=== PATIENT | female | born 1955 | race Caucasian/White ===

== ENCOUNTER → 2019-07-25 08:07 | Outpatient (BNVA) | payer MEDICARE, OTHER, SELFPAY | PROVIDERS: Family Provider Nurse Practitioner Family; PCP Nurse Practitioner Family; Visit Provider Internal Medicine Endocrinology, Diabetes & Metabolism | DX: E21.0 Primary hyperparathyroidism (principal); R79.89 Other specified abnormal findings of blood chemistry | CPT/HCPCS: 82306; 82310; 83970 ==

== ENCOUNTER → 2019-09-24 09:07 | Outpatient (BNVA) | payer MEDICARE, OTHER, SELFPAY | PROVIDERS: Family Provider Nurse Practitioner Family; PCP Nurse Practitioner Family; Visit Provider Nurse Practitioner Family | DX: E11.9 Type 2 diabetes mellitus without complications (principal) | CPT/HCPCS: 80053; 80061; 83036; 85025 ==

== ENCOUNTER → 2019-12-04 11:03 | Outpatient (BNVA) | payer MEDICARE, OTHER, SELFPAY | PROVIDERS: Family Provider Nurse Practitioner Family; PCP Nurse Practitioner Family; Visit Provider Nurse Practitioner | DX: I10 Essential (primary) hypertension (principal) | CPT/HCPCS: 80053; 81000; 84443; 85025 ==

== ENCOUNTER 2019-12-06 01:09 | Observation (INO) | payer MEDICARE, OTHER, SELFPAY ==
[2019-12-06] VITALS (11 sets, daily range): BP systolic 92–206; BP diastolic 47–111; PULSE 56–100; RESP 14–21; TEMP 36.4–36.6; O2SAT 88–98; BMI 24.9
--- NOTE | 2019-12-06 01:25 | ECG_ITS ---
Measurements Intervals [place] Rate: 85 P: 77 NC: 169 QRS: -58 QRSD: 115 T: 93 QT: 371 QTc: 444 SINUS RHYTHM LOW QRS VOLTAGE IN PRECORDIAL LEADS INCOMPLETE RIGHT BUNDLE BRANCH BLOCK LEFT ANTERIOR FASCICULAR BLOCK POSSIBLE ANTERIOR MYOCARDIAL INFARCTION , OF INDETERMINATE AGE No previous ECG available for comparison Electronically Signed On 12-06-2019 18:04:37 CDT by Jessica Brumfield M.D. [id number]
--- NOTE | 2019-12-06 01:25 | XR_ITS ---
WS: [id number] CHEST XRAY TECHNIQUE: Portable chest. CLINICAL INFORMATION: cp COMPARISON: None. FINDINGS: Heart: Normal cardiac silhouette. Lungs: Lungs are clear. No consolidation or pleural effusion. Chronic elevation right hemidiaphragm. Bones: Normal visualized bony structures. XR/XR chest 1V portable [id number] IMPRESSION: No acute chest findings
--- NOTE | 2019-12-06 01:31 | ED_ITS ---
HPI - Chest Pain General: Chief Complaint: Chest Pain Stated Complaint: high bp Time Seen by Provider: 12/06/19 01:25 History of Present Illness: HPI narrative: 64-year-old female with a history of hypertension states her blood pressures been running high over the last 2 days. She saw her PCP yesterday who upped her lisinopril. She states tonight she started having chest pain that is a pressure type pain in her chest that radiated to her back. She denies any tearing pain and states it is all been pressure. She denies any pain currently. She is hypertensive. She denies any vomiting has had nausea. She has a history of high blood pressure along with high cholesterol and diabetes. MD complaint: chest pain Onset (ago): hour(s) Timing of current episode: episodic Onset: during rest Pain location: left chest Pain radiation: left arm and back Severity: moderate Quality: tightness Relieving factors: nothing Exacerbating factors: nothing Associated symptoms: Deny abdominal pain, dyspnea, fever(s), nausea or vomiting Review of Systems Const: Denies: fever(s), chills, body aches or change in appetite Eyes: Denies: blurry vision or eye discomfort ENMT: Denies: throat pain or dental pain Card: Reports: chest pain Resp: Denies: dyspnea GI: Denies: abdominal pain, nausea, vomiting or diarrhea : Denies: dysuria Musc: Denies: neck pain or back pain Skin/Breast: Denies: rash Neuro: Denies: headache(s) Psych: Denies: depression Manuel/Lymph: Denies: easy bruising All/Imm: Denies: urticaria PFSH ED PFSH: Medical History Dyslipidemia Environmental and seasonal allergies Essential (primary) hypertension Generalized osteoarthrosis, involving multiple sites Interstitial lung disease Obstructive sleep apnea Pulmonary hypertension, unspecified Type 2 diabetes mellitus without complications Surgical History History of parathyroidectomy 06/18/19 Hx of hysterectomy 1995 - TOTAL Family History Brother Cancer of brain Other Bleeding ulcer Cancer Social History Smoking and tobacco status: never smoked Second hand smoke exposure: No Smoking risk assessment/counseling performed?: No Alcohol intake: never Desire information about alcohol rehabilitation?: No Counseling given: No Desire information about substance/drug rehabilitation?: No Counseling given: No Adopted: No Caregiver/support person: No Lives independently: Yes Household members: spouse Housing: House Marital status: Number of children: 2 Number of grandchildren: 1 Highest education level completed: Bachelor's Degree service: No Current occupational status: employed Current occupation: [employer] Current occupational exposures/hazards: No History of recent travel: No Current gender identity: Female Physical Exam Const: COMMON NORMALS: no acute distress, patient oriented x3 and healthy appearing HENMT: COMMON NORMALS: normocephalic and atraumatic HEAD & SCALP: normocephalic and atraumatic Eye: COMMON NORMALS: Equal, round and reactive pupils present and EOMs intact bilaterally PUPIL: Yes Equal, round and reactive pupils present Neck/C-Spine: COMMON NORMALS: full ROM and supple Chest: COMMONS NORMALS: normal inspection of the chest and normal palpation of entire chest wall Resp: COMMON NORMALS: normal respiratory effort, No retractions, No use of accessory muscles and clear to auscultation bilaterally AUSCULTATION: clear to auscultation bilaterally Cardio: COMMON NORMALS: regular rate, regular rhythm and No murmurs present (Cardio) RATE: regular rate RHYTHM: regular rhythm GI: COMMON NORMALS: Normal to inspection, nondistended, normoactive bowel sounds present, Soft to palpation, non-tender and no masses PALPATION: Yes Soft to palpation Extremity: COMMON NORMALS: normal to inspection and full ROM Neuro: COMMON NORMALS: patient oriented x3, moves all extremities and no focal motor deficits Psych: COMMON NORMALS: mental status grossly normal, Normal thought process present and cooperative THOUGHT PROCESS: Normal thought process present Skin: COMMON NORMALS: no rashes or lesions noted and no wounds GENERAL SKIN EXAM: no rashes or lesions noted Course 2 Vital Signs: Vital signs: Vital Signs Temperature 97.9 F 12/06/19 01:20 Pulse Rate 56 L 12/06/19 02:35 Respiratory Rate 16 12/06/19 02:35 Blood Pressure 128/88 12/06/19 02:35 Pulse Oximetry 91 12/06/19 02:35 MDM - Chest Pain MDM Narrative: Medical decision making narrative: Patient presents with chest pain is resolved with nitro. Patient is also hypertensive that resolved with nitro as well. She has multiple risk factors I spoke to catheter and will admit duration. Patient has been stable while here. She has no signs of aortic dissection or pulmonary embolism. Lab Data: Labs: Lab Results 12/06/19 12/06/19 12/06/19 Range/Units 01:30 01:30 01:30 WBC 12.9 H (4.0-10.0) 10^3/ uL RBC 4.98 (4.1-5.3) 10^6/u L Hgb 14.2 (11.5-15.3) g/dL Hct 44.7 (37.0-47.0) % MCV 89.8 (81-99) fL MCH 28.5 (28.0-34.0) pg MCHC 31.8 (30.0-36.0) g/dL RDW 13.4 (12.1-15.1) % Plt Count 237 (130-400) 10^3/c mm MPV 10.8 H (7.4-10.4) fL Neut % (Auto) 70.3 % Lymph % (Auto) 20.5 % [place] % (Auto) 5.9 % Eos % (Auto) 2.5 % Baso % (Auto) 0.5 % Neut # (Auto) 9.1 H (1.8-7.7) 10^3/u L Lymph # (Auto) 2.6 (0.8-4.8) 10^3/u L [place] # (Auto) 0.8 (0.2-0.9) 10^3/u L Eos # (Auto) 0.3 (0.0-0.8) 10^3/u L Baso # (Auto) 0.1 (0.0-0.1) 10^3/u L Nucleated RBC % (a uto) 0 % Nucleated RBCs # 0.0 /100WBC Sodium 143 (136-145) mmol/L Potassium 3.5 (3.5-5.1) mmol/L Chloride 99 (98-107) mmol/L Carbon Dioxide 27 (22-29) mmol/L Anion Gap 20.5 H (5-19) BUN 18 (8-23) mg/dL Creatinine 0.8 (0.5-0.9) mg/dL GFR Calculation 71.8 L (90-130) mL/min Glucose 171 H (65-115) mg/dL Calculated Osmolal ity 297 H (285-295) mOsm/k g Calcium 9.6 (8.5-10.5) mg/dL Total Bilirubin 0.3 (0.15-1.2) mg/dL AST 18 (0-32) U/L ALT 24 (0-33) U/L Alkaline Phosphata se 110 H (35-105) IU/L Troponin T Baselin e 16 H (0-10) ng/mL Total Protein 7.2 (6.6-8.7) g/dL Albumin 4.8 (3.5-5.2) g/dL Globulin 2.4 (1.3-4.6) g/dL Imaging Data^: CXR: Attestation: I personally reviewed and interpreted this imaging study as follows: My impression: no acute abnormality EKG Data^: EKG 1: Attestation: I personally reviewed and interpreted this EKG as follows: EKG interpretation date: 12/06/19 EKG interpretation time: 01:41 Interpretation: nsr hr 85 rbbb fascicular block no st elevation qrs 115 qtc 414 Discharge Plan Discharge Patient Disposition: Admitted As Inpatient Clinical Impression: Essential (primary) hypertension Chest pain Qualifiers: Chest pain type: unspecified Qualified Code(s): R07.9 - Chest pain, unspecified Condition: Stable Referrals: Jossie Sanchez FNP-C [Primary Care Provider] - Coding Level of Care Code ED Property Economist for Chg Fwd Exam Comprehensive
[2019-12-06 01:38] LABS: Basophils # 0.1 10^3/uL (0.0-0.1); Basophils % 0.5 %; Eosinophils # 0.3 10^3/uL (0.0-0.8); Eosinophils % 2.5 %; Hematocrit 44.7 % (37.0-47.0); Hemoglobin 14.2 g/dL (11.5-15.3); Lymphocytes # 2.6 10^3/uL (0.8-4.8); Lymphocytes % 20.5 %; Mean Corpuscular HGB Conc 31.8 g/dL (30.0-36.0); Mean Corpuscular Hemoglobin 28.5 pg (28.0-34.0); Mean Corpuscular Volume 89.8 fL (81-99); Mean Platelet Volume 10.8 fL (7.4-10.4); Monocytes # 0.8 10^3/uL (0.2-0.9); Monocytes % 5.9 %; Neutrophils # 9.1 10^3/uL (1.8-7.7); Neutrophils % 70.3 %; Nucleated Red Blood Cells % 0 %; Platelet Count 237 10^3/cmm (130-400); Red Blood Count 4.98 10^6/uL (4.1-5.3); Red Cell Distribution Width 13.4 % (12.1-15.1); White Blood Count 12.9 10^3/uL (4.0-10.0)
[2019-12-06] MEDS: nitroglycerin 0.4 mg sublingual Tablet SUBLINGUAL (01:40)
[2019-12-06 02:06] LABS: Alanine Aminotransferase 24 U/L (0-33); Albumin Level 4.8 g/dL (3.5-5.2); Alkaline Phosphatase 110 IU/L (35-105); Anion Gap 20.5 (5-19); Aspartate Amino Transferase 18 U/L (0-32); Blood Urea Nitrogen 18 mg/dL (8-23); Calcium 9.6 mg/dL (8.5-10.5); Carbon Dioxide 27 mmol/L (22-29); Chloride 99 mmol/L (98-107); Globulin 2.4 g/dL (1.3-4.6); Glomerular Filtration Rate 71.8 mL/min (90-130); Glucose 171 mg/dL (65-115); Osmolality Calculated 297 mOsm/kg (285-295); Potassium 3.5 mmol/L (3.5-5.1); Sodium 143 mmol/L (136-145); Total Bilirubin 0.3 mg/dL (0.15-1.2); Total Protein 7.2 g/dL (6.6-8.7)
[2019-12-06 02:07] LABS: Troponin(5th) Baseline 16 ng/mL (0-10)
[2019-12-06] MEDS: sodium chloride 0.9% 1,000 ML 999 ML IV (02:49)
--- NOTE | 2019-12-06 03:05 | USCV_ITS ---
Elizabeth Garcia Age: 64 Gender: F : 1955 Exam Date: 12/06/2019 07:21 Ordering Phys: Claudia Cam MD Technologist: Omar Mcneal [place]am [place] [facility] [place]ication: CHEST PAIN BP: 130 / 74 HR: 74 Rhythm: Sinus Technical Quality: Adequate MEASUREMENTS (Male / Female) Normal Values 2D ECHO LV Diastolic Diameter PLAX 4.0 cm 4.2 - 5.9 / 3.9 - 5.3 cm LV Systolic Diameter PLAX 3.0 cm IVS Diastolic Thickness 0.9 cm 0.6 - 1.0 / 0.6 - 0.9 cm IVS Systolic Thickness 1.3 cm LVPW Diastolic Thickness 1.0 cm 0.6 - 1.0 / 0.6 - 0.9 cm LVPW Systolic Thickness 1.3 cm LVOT Diameter 2.0 cm LV Ejection Fraction 2D Teich 50.6 % LV Ejection Fraction MOD 2C 63.8 % LV Ejection Fraction 2C AL 64.3 % LA Diameter 4.9 cm LA Width 3.7 cm LA Height 4.0 cm RA Width 3.6 cm RA Height 4.3 cm M-MODE LV Diastolic Diameter MM 5.3 cm 4.2 - 5.9 / 3.9 - 5.3 cm LV Systolic Diameter MM 3.0 cm LV Ejection Fraction MM Teich 72.7 % IVS Diastolic Thickness MM 1.5 cm 0.6 - 1.0 / 0.6 - 0.9 cm IVS Systolic Thickness MM 1.8 cm LVPW Diastolic Thickness MM 1.1 cm 0.6 - 1.0 / 0.6 - 0.9 cm LVPW Systolic Thickness MM 1.8 cm RV Diastolic Diameter MM 1.9 cm Aortic Annulus Diameter 3.4 cm LA Ao Ratio MM 1.4 MV E Point Septal Separation 0.9 cm DOPPLER AV Peak Velocity 137.0 cm/s LVOT Peak Velocity 92.0 cm/s AV Area Cont Eq vti 2.3 cm squared AV Area Cont Eq pk 2.2 cm squared MV Area PHT 5.0 cm squared Mitral E to A Ratio 0.8 MV E' Velocity 77.0 cm/s Mitral E to LV E' Septal Ratio 11.9 TR Peak Velocity 223.0 cm/s TR Peak Gradient 19.9 mmHg TV Peak E Velocity 109.0 cm/s Right Atrial Pressure 3.0 mmHg Pulmonary Artery Systolic Pressu 22.9 mmHg PV Peak Velocity 99.0 cm/s FINDINGS Left Ventricle Normal left ventricular cavity size. Normal left ventricular systolic function. No regional wall motion abnormalities. Left ventricular ejection fraction is estimated at 60 %. No regional wall motion abnormalities. Grade I/IV diastolic dysfunction (abnormal relaxation filling pattern), normal to mildly elevated filling pressures. Right Ventricle The right ventricle is normal in size and function. Right Atrium The right atrium is normal in size. Left Atrium The left atrium is normal in size. Mitral Valve Structurally normal mitral valve without significant stenosis or prolapse. Moderate mitral annular calcification. There is no mitral regurgitation. Aortic Valve Moderate aortic valve calcification. No aortic valve stenosis. No aortic valve regurgitation. Tricuspid Valve Structurally normal tricuspid valve without significant stenosis or regurgitation. Pulmonary artery systolic pressure is normal. Pulmonic Valve Structurally normal pulmonic valve without significant stenosis. There is no pulmonic regurgitation. Pericardium Normal pericardium without effusion. Aorta Normal ascending aorta dimension. CONCLUSIONS 1-Normal left ventricular cavity size. Normal left ventricular systolic function. No regional wall motion abnormalities. Left ventricular ejection fraction is estimated at 60 %. No regional wall motion abnormalities. Grade I/IV diastolic dysfunction (abnormal relaxation filling pattern), normal to mildly elevated filling pressures. 2-Structurally normal mitral valve without significant stenosis or prolapse. Moderate mitral annular calcification. There is no mitral regurgitation. 3-Moderate aortic valve calcification. No aortic valve stenosis. No aortic valve regurgitation. 4-There is no pericardial effusion. 5-Pulmonary artery systolic pressure is within normal limits. 6-No significant change since the prior echocardiogram study of 05/24/2018. Donte Aguirre MD (Electronically Signed) Final Date: 06 Dec 2019 16:37 S
--- NOTE | 2019-12-06 03:25 | ECG_ITS ---
Measurements Intervals [place] Rate: 0 P: [place]: 0 QRS: QRSD: 0 T: QT: 0 QTc: 0 SINUS BRADYCARDIA ATYPICAL ECG WARNING: DATA QUALITY MAY AFFECT INTERPRETATION INTERPRETATION BASED ON A DEFAULT AGE OF 40 YEARS No previous ECG available for comparison Electronically Signed On 12-06-2019 21:51:47 CDT by Jessica Brumfield M.D. [id number]
[2019-12-06 03:29] LABS: NT Pro B Type Natriuretic Pept 75 pg/mL (0-125)
[2019-12-06 03:31] LABS: Troponin 5 2HR 15.35 ng/mL (0-10)
[2019-12-06 03:36] LABS: D Dimer 2.93 ug/mIFEU (0-0.59)
[2019-12-06] MEDS: enoxaparin 40 mg/0.4 mL Syringe SUBCUT (03:47)
[2019-12-06 03:48] LABS: Troponin 5 2HR Delta -0.65 ABS# (0-10)
--- NOTE | 2019-12-06 05:49 | P.HP_ITS ---
Providers/Chief Complaint Admitting Physician: Claudia Cam MD Primary Care Provider: SHANDA Bonner Chief Complaint: high bp History of Present Illness Elizabeth Garcia is a 64 year old female with a past medical history of hypertension, diabetes mellitus, hyperlipidemia, sleep apnea and osteoarthritis who presents to the ER with complaints of chest discomfort. Patient states that she has been having chest discomfort, which first started around Monday night at which time her blood pressure was grossly elevated at home. She took her blood pressure medications and then subsequently followed up with her primary care provider on Monday at which time her dose of lisinopril was increased from 20 mg once a day to 40 mg once a day. In addition her Lasix was also increased to 20 mg daily as against being PRN. Increasing the Lasix dose. Improve some of her lower extremity swelling, however this is been more chronic for her. Last night at around midnight, patient started to experience chest discomfort, felt as a squeezing sensation in the center of her chest and radiating into the back. Was no radiation into the arms or neck. She did not feel short of breath during this episode. She checked her blood pressure and this was greater than 200 systolic and she presented to the ER. Once here her blood pressure upon arrival was 200 systolic. She received nitroglycerin which reduced her blood pressure and in fact dropped to systolic of 92. She also became transiently bradycardic with heart rate of 50. She said that during this episode she felt diaphoretic and mildly dizzy, however this recovered after she got some IV hydration and blood pressure returned to normal. At this present time of examination her blood pressure is 170/110. She says her pain is now much improved. She does not report any dyspnea on exertion the past few days. She has not had a cardiac stress test in the recent past. 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 She has no history of NH in the past. Diagnostics in the ER showed an EKG possible LVH but no acute ST-T wave changes. Her first troponin is at 16, with subsequent 1 at 15 with a negative delta of 0.6. She is saturating 94% on room air, though earlier in the ER was noted to have O2 sat of 88%. Last echocardiogram dates back to 05/2018 at which time LVEF was 65% without any regional wall motion abnormalities and a normal diastolic function. Review of Systems General: Reports: 10 or more systems reviewed and unremarkable except in HPI and below Const: Denies: fever(s), chills or body aches Eyes: Denies: change in vision, blurry vision or photophobia ENMT: Denies: throat pain, enlarged tonsils, odynophagia, hoarseness or nasal congestion Card: Denies: chest pain, palpitations, irregular heart rhythm, edema, swelling of feet/ankles, lightheadedness, pre-syncope, dyspnea on exertion or orthopnea Resp: Denies: dyspnea, productive cough, non-productive cough, wheezing, stridor, pain on inspiration, change in phlegm color, hemoptysis or chest congestion GI: Denies: abdominal pain, nausea, vomiting, hematemesis, coffee ground emesis, dysphagia, heartburn, diarrhea, constipation, GI cramping, change in stool character, hematochezia or melena : Denies: flank pain, difficulty voiding, dysuria, urinary frequency, urinary urgency, urinary hesitancy or hematuria Musc: Denies: neck pain, back pain, extremity pain, joint swelling, joint warmth or deformity Neuro: Denies: headache(s), numbness in extremities, weakness in extremities, sensory changes, difficulty walking, frequent falls, dizziness, vertigo, behavioral changes, Slurred speech present or seizure-like activity Psych: Denies: anxiety, depression, suicidal ideation or homicidal ideation Endo: Denies: polyuria, polydipsia, tired all the time, cold intolerance or hot flashes Manuel/Lymph: Denies: easy bruising or easy bleeding Medications/Allergies Home Medications Medication Instructions Recorded Confirmed Last Taken Type albuterol sulfate 90 mcg/actuation 2 puff INHALATION Q6H PRN 09/26/19 12/06/19 12/05/19 History aerosol inhaler aspirin 81 mg tablet,delayed 81 mg PO DAILY 09/26/19 12/06/19 12/05/19 History release cetirizine 10 mg tablet 5 mg PO DAILY 30 Days #30 tab 09/26/19 12/06/19 12/05/19 Rx fish oil 1 tab PO DAILY 09/26/19 12/06/19 12/05/19 History furosemide 20 mg tablet 20 mg PO DAILY 30 Days #30 tab 09/26/19 12/06/19 12/05/19 Rx meloxicam 15 mg tablet 15 mg PO DAILY 30 Days #30 tab 09/26/19 12/06/19 12/05/19 Rx metformin 500 mg tablet 500 mg PO BID 30 Days #60 tab 09/26/19 12/06/19 12/05/19 Rx montelukast 10 mg tablet 10 mg PO DAILY 09/26/19 12/06/19 12/05/19 History rosuvastatin 5 mg tablet 5 mg PO .every other day 30 Days 09/26/19 12/06/19 12/05/19 Rx #30 tab vitamin c 1,000 tab PO DAILY 09/26/19 12/06/19 12/05/19 History vitamin d 1 tab PO DAILY 09/26/19 12/06/19 12/05/19 History fluconazole 150 mg tablet 150 mg PO DAILY #1 tab 11/07/19 12/06/19 12/05/19 Rx nystatin 100,000 unit/gram topical 1 applic TOPICAL BID #60 gm 11/07/19 12/06/19 12/05/19 Rx powder lisinopril 40 mg tablet 40 mg PO DAILY 30 Days #30 tab 12/04/19 12/06/19 12/05/19 Rx Allergies Allergy/AdvReac Type Severity Reaction Status Date / Time No Known Allergies Allergy Verified 09/26/19 08:33 PFSH Acute PFSH: Medical History Dyslipidemia Environmental and seasonal allergies Essential (primary) hypertension Generalized osteoarthrosis, involving multiple sites Interstitial lung disease Obstructive sleep apnea Pulmonary hypertension, unspecified Type 2 diabetes mellitus without complications Surgical History History of parathyroidectomy 06/18/19 Hx of hysterectomy 1996 - TOTAL Family History Brother Cancer of brain Other Bleeding ulcer Cancer Social History Smoking and tobacco status: never smoked Second hand smoke exposure: No Smoking risk assessment/counseling performed?: No Alcohol intake: never Desire information about alcohol rehabilitation?: No Counseling given: No Desire information about substance/drug rehabilitation?: No Counseling given: No Adopted: No Caregiver/support person: No Lives independently: Yes Household members: spouse Housing: House Marital status: Number of children: 2 Number of grandchildren: 1 Highest education level completed: Bachelor's Degree service: No Current occupational status: employed Current occupation: [employer] Current occupational exposures/hazards: No History of recent travel: No Current gender identity: Female Vitals/I&O/Wt Last Vital Signs Temp 97.6 F 12/06/19 03:43 Pulse 65 12/06/19 05:05 Resp 18 12/06/19 05:05 BP 170/67 12/06/19 03:43 Pulse Ox 94 12/06/19 05:05 Weight last 48 hrs Weight 123.468 kg Weight 72.121 kg Physical Exam Narrative: EXAM NARRATIVE: GEN: Awake, alert and oriented, no acute distress CVS: S1S2 N RS: CTA B/L Abd: Soft, nt/nd , 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 - Chest pain: Currently EKG does not show any acute ST-T changes and serial troponins do not have unremarkable delta, making the possibility of ACS less likely. However this could represent unstable angina and would recommend a stress test for further evaluation. However, on checking with the lab, it is unable to be performed today Check echocardiogram Continue aspirin 81 mg daily. She has already received 325 mg aspirin in the ER. -Hypertensive urgency likely contributing to patient's symptoms. His initial blood pressure was greater than 200 systolic, improved after being given nitrates. We will continue her home dose of lisinopril 40 mg for now and add Imdur to her regimen. Plan would avoid the use of beta-blockers given that patient had bradycardia down to 40s to 50s in the ER. -Transient episode of hypoxia with O2 sat down to 88%, which while it may be related to her underlying sleep apnea, given that she is complaining of chest pain hypoxia and with an elevated d-dimer, will rule out PE by obtaining CTA of the chest. -Chronic lower extremity swelling for which patient is on Lasix. BNP is not elevated today. Unclear if CHF may be contributing this. Echocardiogram with help evaluate further. -Diabetes mellitus: Continue metformin for now. DVT prophylaxis Lovenox Full code Attestations Medical Necessity Statement*: Anticipate less than 1 midnight admission for evaluation of chest pain and hypertensive urgency. Coding Level of Care Code Acute Development System Efficiency Manager for [facility] Diagnoses Chest pain R07.9 Chest pain type: unspecified Type 2 diabetes mellitus without complications E11.9 Diabetes mellitus residential insulin use: without residential use Hypertensive urgency I16.0
--- NOTE | 2019-12-06 06:06 | CTR_ITS ---
PROCEDURE INFORMATION: Exam: CT Angiography Chest With Contrast Exam date and time: 12/06/2019 6:08 AM Age: 64 years old Clinical indication: Pain and abnormal findings; Abnormal diagnostic tests; Elevated d-dimer; Other: Hypoxia; Chest pain; Additional info: Chest pain, hypoxia, elevated d dimer TECHNIQUE: Imaging protocol: Computed tomographic angiography of the chest with intravenous contrast. 3D rendering: MIP and/or 3D reconstructed images were created by the technologist. Radiation optimization: All CT scans at this facility use at least one of these dose optimization techniques: automated exposure control; mA and/or kV adjustment per patient size (includes targeted exams where dose is matched to clinical indication); or iterative reconstruction. Contrast material: OMNI 350; Contrast volume: 95 ml; Contrast route: 20G; COMPARISON: CT chest [facility] [id number] 05/11/2018 9:59 AM RADIATION DOSE METRICS: Total DLP: 624.85 mGy-cm FINDINGS: Pulmonary arteries: No pulmonary emboli identified. Aorta: Mild atherosclerotic calcification of the thoracic aorta. There is no evidence of thoracic aortic aneurysm or dissection within the limits imposed by heart motion artifact. Lungs: Mild emphysematous changes of both lungs. Mild patchy atelectasis scattered throughout both lungs. Pleural space: No pneumothorax or pleural effusion. Heart: Heart size within normal limits. Lymph nodes: No enlarged or abnormal appearing mediastinal/hilar lymph nodes identified. Bones/joints: Probable hemangioma in the left side of the T5 vertebral body. Moderate degenerative disc disease at L1-L2. Soft tissues: Unremarkable. Other findings: Images of the upper abdomen were reviewed and are unremarkable. CT/CT angio chest PE [facility] [id number] IMPRESSION: 1. No pulmonary emboli identified. Radiation Dose CTDIVOL = (mGy): DLP = 624.85 (mGy-cm)
[2019-12-06] MEDS: iohexol 350 mg/mL 100 mL Btl IV (06:47)
--- NOTE | 2019-12-06 07:25 | ECG_ITS ---
Measurements Intervals [place] Rate: 65 P: 60 VT: 192 QRS: -38 QRSD: 121 T: 106 QT: 362 QTc: 378 SINUS RHYTHM LEFT AXIS DEVIATION [QRS AXIS < -30] RIGHT BUNDLE BRANCH BLOCK LEFT VENTRICULAR HYPERTROPHY AND ST-T CHANGE POSSIBLE ANTERIOR MYOCARDIAL INFARCTION , OF INDETERMINATE AGE [30 ms Q WAVE IN V3/V4, OR R < 0.2 mV IN V4] No previous ECG available for comparison Electronically Signed On 12-06-2019 18:34:54 CDT by Jessica Brumfield M.D. [id number]
[2019-12-06] MEDS: lisinopril 20 mg Tablet 40 MG PO (08:21)
[2019-12-06] MEDS: aspirin 81 mg EC Tablet PO (08:21)
[2019-12-06] MEDS: isosorbide mononitrate ER 30 mg Tablet PO (08:22)
[2019-12-06] MEDS: atorvastatin 40 mg Tablet 20 MG PO (08:24)
[2019-12-06] MEDS: FUROsemide 20 mg Tablet PO (08:24)
--- NOTE | 2019-12-06 10:00 | PC.CHAP ---
Pastoral Care Encounter/Spiritual Assessment Type of Contact [] Declined armature winder repair visit [] Patient/Family/Request visit [] Outpatient visit [] Follow-up visit [] Physician referral [] Code/Alert [x] Routine visit [] Staff referral [] Actively dying [] Patient sleeping [] Family support [] [] Out of room [] Palliative care [] [] Receiving care in room [] Pre-surgical visit [] Trauma [] Long length of stay [] ICU visit [] Other: Relational/Emotional Strength [] Patient feels connected with others/family/visitors/staff [] Distress [] Loneliness/isolation [] Abandonment Spirituality of Patient [] Person of Shirley [] Attends Caodaism of their [place] [x] Believes in Prayer [] Reads Bible or Congregation materials [] There are Spiritual issues to be addressed Prevocational/Rehabilitation Counselor Interventions [x] Prayer [] Active listening [] Non-anxious presence [] Spiritual/emotional support [] Crisis/trauma care [] Spiritual counseling [] Bereavement support [] Provided bereavement packet [] Provided Bible/devotional materials [] Provided toy/stuffed animal, coloring book to patient or family member [] Provided Communion [] Anointing/[place] [] Salvation [x] Completed spiritual assessment [] Other: Impact on Illness or Injury [] Angry [] Fearful [] Anxious [] Often cries [] Exhaustion [] Unable to work [] Unable to attend quaker [] Unable to walk/stand [] Unable to read [] Unable to drive [] Unable to eat/drink [] Unable to sleep [] Unable to be with family [] Patient intubated [] Other: Summary Patient feeling more stable. Patient trying to get some rest. Time spent with patient 15 min
--- NOTE | 2019-12-06 10:42 | PM.DCS ---
Discharge Providers Date of Admission: 12/06/19 02:37 Date of Discharge: December 06, 2019 Attending Provider at Admission: Claudia Cam MD Attending Provider at Discharge: Atif Jacobsen MD Primary Care Provider: SHANDA Bonner Diagnoses at Discharge Discharge Diagnosis (1) Chest pain: Status: Acute Qualifiers: Chest pain type: unspecified Qualified Code(s): R07.9 - Chest pain, unspecified (2) Type 2 diabetes mellitus without complications: Status: Chronic Qualifiers: Diabetes mellitus alf insulin use: without alf use Qualified Code(s): E11.9 - Type 2 diabetes mellitus without complications (3) Hypertensive urgency: Status: Acute (4) Essential (primary) hypertension: Status: Chronic (5) Obstructive sleep apnea: Status: Chronic (6) Dyslipidemia: Status: Chronic (7) Pulmonary hypertension, unspecified: Status: Chronic Reason for Visit Reason for Visit: Reason For Visit: high bp Hospital Course Discharge Summary: Elizabeth Garcia is a 64 year old female with a past medical history of hypertension, diabetes mellitus, hyperlipidemia, sleep apnea and osteoarthritis who presents to the ER with complaints of chest discomfort. Patient states that she has been having chest discomfort, which first started around Monday night at which time her blood pressure was grossly elevated at home. She took her blood pressure medications and then subsequently followed up with her primary care provider on Monday at which time her dose of lisinopril was increased from 20 mg once a day to 40 mg once a day. In addition her Lasix was also increased to 20 mg daily as against being PRN. Increasing the Lasix dose. Improve some of her lower extremity swelling, however this is been more chronic for her. On night of December 04 at around midnight, patient started to experience chest discomfort, felt as a squeezing sensation in the center of her chest and radiating into the back. Was no radiation into the arms or neck. She did not feel short of breath during this episode. She checked her blood pressure and this was greater than 200 systolic and she presented to the ER. Once here her blood pressure upon arrival was 200 systolic. She received nitroglycerin which reduced her blood pressure and in fact dropped to systolic of 92. She also became transiently bradycardic with heart rate of 50. She said that during this episode she felt diaphoretic and mildly dizzy, however this recovered after she got some IV hydration and blood pressure returned to normal. At this present time of examination her blood pressure is 170/110. She says her pain is now much improved. She does not report any dyspnea on exertion the past few days. She has not had a cardiac stress test in the recent past. She last had a cardiac catheterization 5 to 6 years ago with her claim investigator in [place] and was reportedly normal at the time. She has no history of MT in the past. Diagnostics in the ER showed an EKG possible LVH but no acute ST-T wave changes. Her first troponin is at 16, with subsequent 1 at 15 with a negative delta of 0.6. She is saturating 94% on room air, though earlier in the ER was noted to have O2 sat of 88%. Last echocardiogram dates back to 05/2018 at which time LVEF was 65% without any regional wall motion abnormalities and a normal diastolic function. Patient was admitted to the floor for monitoring of blood pressure. Imdur was added to her regimen after which her blood pressures remained a lot better. Patient was reporting mild headache because of Imdur. Her blood work showed A1c of 7.1, deranged lipid panel. Telemetry monitoring overnight had shown normal sinus rhythm with occasional rhythm of possible multifocal atrial tachycardia versus a flutter. For hypertension as patient was experiencing headache with Imdur the dose of Imdur was decreased to 15 mg daily. Patient did not have much lower limb swelling so her dose of Lasix was changed to chlorthalidone for better blood pressure response. So her antihypertensive regimen would be lisinopril 40 mg daily, chlorthalidone 12.5 mg daily, Imdur 15 mg daily. Patient has been asked to maintain a blood pressure diary for next 1 week. She supposed to take blood pressure twice daily on second time after resting for around 5 minutes. For chest pressure, her troponins were cycled and remained negative, EKG remained stable. As patient was admitted late in night stress test could not be ordered for next day due to limited supply of Lexiscan. As patient did not have any further chest pain she was advised to follow-up as an outpatient for a Lexiscan. For possible arrhythmia, it is possible patient is having multifocal atrial tachycardia because of history of obstructive sleep apnea. We do not have any EKG or patient does not have any history of the same. Patient would like to hold off on starting on anticoagulation for now. Patient has been arranged for an event monitor to be fitted for further evaluation. For HCP, patient's ASCVD score was 25% so the dose of rosuvastatin was increased to be high intensity, high dose of metformin was also increased to thousand milligrams twice daily as her fasting blood sugars are more than 140. For obstructive sleep apnea, patient uses CPAP at home. Patient has been encouraged to continue CPAP as fitted. She said her last setting change was around a year ago. Patient at rest when relaxing with her head forward the saturations will fall down to 88% but that improves all of a sudden on its own to 95% on sitting up straight. Patient has been counseled for better sitting posture. Advair has been added to her medication list for history of emphysema. During hospitalization patient was found to have an elevated d-dimer for which CTA was done and was negative for any pulmonary embolism but showed mild emphysema. Echocardiogram was done but result is not available at present. Patient was discharged in hemodynamic stable condition with better blood pressures and no chest pain. Physical Exam Narrative: EXAM NARRATIVE: GEN: Awake, alert and oriented, no acute distress CVS: S1S2 N RS: CTA B/L Abd: Soft, nt/nd , bs+ CHEMICAL PRODUCTION ENGINEER: no focal neuro deficits EXT: B/L LE with minimal pitting edema Discharge Data Data Completed and Pending: Completed Studies During Hospitalization Category Date Time Status CT angio chest PE protcl [id number] Rout ine Cat Scan 12/06/19 06:06 Completed XR chest 1V mike ble [id number] Stat Exams 12/06/19 01:25 Completed Pending at discharge Category Date Time Status CV echo complete* [id number] Urgent Ultrasound 12/06/19 03:05 Taken Labs from last 24 hours 12/06/19 12/06/19 12/06/19 07:10 03:08 01:30 WBC RBC Hgb Hct MCV MCH MCHC RDW Plt Count MPV Neut % (Auto) Lymph % (Auto) Logan % (Auto) Eos % (Auto) Baso % (Auto) Neut # (Auto) Lymph # (Auto) Logan # (Auto) Eos # (Auto) Baso # (Auto) Nucleated RBC % (a uto) Nucleated RBCs # D-Dimer Sodium Potassium Chloride Carbon Dioxide Anion Gap BUN Creatinine GFR Calculation Glucose Calculated Osmolal ity Calcium Total Bilirubin AST ALT Alkaline Phosphata se Troponin I 6 Hour 13.40 H Troponin I Hi Sens Del -2.60 L Troponin T Baselin e Troponin T 120 Min coquille 15.35 H Delta Troponin T -0.65 L NT-Pro-B Natriuret Pep 75 Total Protein Albumin Globulin 12/06/19 12/06/19 12/06/19 01:30 01:30 01:30 WBC RBC Hgb Hct MCV MCH MCHC RDW Plt Count MPV Neut % (Auto) Lymph % (Auto) Logan % (Auto) Eos % (Auto) Baso % (Auto) Neut # (Auto) Lymph # (Auto) Logan # (Auto) Eos # (Auto) Baso # (Auto) Nucleated RBC % (a uto) Nucleated RBCs # D-Dimer 2.93 H Sodium 143 Potassium 3.5 Chloride 99 Carbon Dioxide 27 Anion Gap 20.5 H BUN 18 Creatinine 0.8 GFR Calculation 71.8 L Glucose 171 H Calculated Osmolal ity 297 H Calcium 9.6 Total Bilirubin 0.3 AST 18 ALT 24 Alkaline Phosphata se 110 H Troponin I 6 Hour Troponin I Hi Sens Del Troponin T Baselin e 16 H Troponin T 120 Min coquille Delta Troponin T NT-Pro-B Natriuret Pep Total Protein 7.2 Albumin 4.8 Globulin 2.4 12/06/19 01:30 WBC 12.9 H RBC 4.98 Hgb 14.2 Hct 44.7 MCV 89.8 MCH 28.5 MCHC 31.8 RDW 13.4 Plt Count 237 MPV 10.8 H Neut % (Auto) 70.3 Lymph % (Auto) 20.5 Logan % (Auto) 5.9 Eos % (Auto) 2.5 Baso % (Auto) 0.5 Neut # (Auto) 9.1 H Lymph # (Auto) 2.6 Logan # (Auto) 0.8 Eos # (Auto) 0.3 Baso # (Auto) 0.1 Nucleated RBC % (a uto) 0 Nucleated RBCs # 0.0 D-Dimer Sodium Potassium Chloride Carbon Dioxide Anion Gap BUN Creatinine GFR Calculation Glucose Calculated Osmolal ity Calcium Total Bilirubin AST ALT Alkaline Phosphata se Troponin I 6 Hour Troponin I Hi Sens Del Troponin T Baselin e Troponin T 120 Min coquille Delta Troponin T NT-Pro-B Natriuret Pep Total Protein Albumin Globulin Vitals: Last Vital Signs Temp 97.9 F 12/06/19 08:15 Pulse 71 12/06/19 08:15 Resp 19 H 12/06/19 08:15 BP 147/80 12/06/19 08:15 Pulse Ox 92 12/06/19 08:15 Discharge Plan Discharge Patient Disposition: Home, Self-Care Condition: Stable Prescriptions: New isosorbide mononitrate 30 mg Tablet Extended Release 24 Hr 15 mg PO DAILY Qty: 30 RF: 0 chlorthalidone 25 mg Tablet 12.5 mg PO DAILY Qty: 30 RF: 0 rosuvastatin 20 mg tablet 20 mg PO DAILY Qty: 30 RF: 0 Continued montelukast [Singulair] 10 mg tablet 10 mg PO DAILY RF: 0 albuterol sulfate [Ventolin HFA] 90 mcg/actuation HFA aerosol inhaler 2 puff INHALATION Q6H PRN (Reason: Shortness Of Breath) RF: 0 aspirin [Adult Low Dose Aspirin] 81 mg tablet,delayed release (DR/EC) 81 mg PO DAILY RF: 0 vitamin c 1,000 unit bottle 1,000 tab PO DAILY RF: 0 vitamin d 2,000 unit 1 tab PO DAILY RF: 0 fish oil capsule 1 tab PO DAILY RF: 0 meloxicam 15 mg tablet 15 mg PO DAILY 30 Days Qty: 30 RF: 2 cetirizine [Zyrtec] 10 mg tablet 5 mg PO DAILY 30 Days Qty: 30 RF: 2 nystatin 100,000 unit/gram powder 1 applic TOPICAL BID Qty: 60 RF: 0 fluconazole [Diflucan] 150 mg tablet 150 mg PO DAILY Qty: 1 RF: 0 lisinopril 40 mg tablet 40 mg PO DAILY 30 Days Qty: 30 RF: 0 Changed metformin 500 mg tablet 1,000 mg PO BID 30 Days Qty: 60 RF: 2 Discontinued furosemide 20 mg tablet 20 mg PO DAILY 30 Days Qty: 30 RF: 2 rosuvastatin [Crestor] 5 mg tablet 5 mg PO .every other day 30 Days Qty: 30 RF: 2 Discharge Orders: Discharge Order (Routine); Ordered 12/06/19 Ordered By: Atif Jacobsen Other Ambulatory Orders: CA cardiac event monitor (Routine) Timeframe: 1 Week Facility: [facility] - Location: Cardiac Diagnostic Laboratory Ordered By: Atif Jacobsen Referrals: Tennille Lau MD [Physician] - 1 week (You have an appointment to be fittied for a event monitor on MondayDecember 22, at 1:30pm. You may come earlier if you'd like after your Cardiac stress test. You will be having a Cardiac Stress Test on December 22, at 9:00am. You will then see Dr. Lau to follow up on December 25, at 9:30am. If you have any questions or concerns please call [facility]. ) Jossie Sanchez FNP-C [Primary Care Provider] - 1 week (You have a hospital follow up with William Zambrano on December 12, at 9:20am. If you have any questions or concerns please call the office. ) Discharge Diet: Cardiac, Diabetic, Low Salt and Low Cholesterol Discharge Activity: Resume usual activity Patient Instructions: Chlorthalidone (By mouth), Isosorbide Mononitrate (By mouth), Rosuvastatin (By mouth), Cardiac Stress Test (DC), Holter Monitoring (DC), Chest Pain Stoplight Activity Restrictions/Additional Instructions: Dose of metformin has been increased to thousand milligrams twice daily. Please take metformin after your stress test. Lasix has been changed to chlorthalidone. Continue taking lisinopril at 40 mg daily. If blood pressure remains high more than 140/80 even after 3 days of change medication start taking Imdur 15 mg daily. Dose of rosuvastatin has been increased. Appointment for cardiac stress test and a Holter monitor has been arranged. Please follow-up with Dr. Lau in 1 week. Please maintain a blood pressure diary for a week before seeing Dr. Lau. Please check blood pressure at least twice daily. Check blood pressure after resting for around 5 minutes. Discharge Date/Time: 12/06/19 12:45 Discharge Attestations Time Spent in Discharge Care*: greater than 30 min Specific Discharge Activities: Specific discharge activities: educating patient, discussing with showcase maker/social workers/dc planners, documenting/other paperwork and evaluating patient/reviewing data Status at Discharge: Cognitive status at discharge: cognitively intact, Behavioral status at discharge: cooperative, Functional status at discharge: independent ambulation Overall status at discharge: patient is back to baseline Quality Metrics Clinical Quality Measures During this hospital stay, did patient experience: None Coding Level of Care Code Acute Yard Demurrage Clerk for Holly Alves Diagnoses Chest pain R07.9 Chest pain type: unspecified Type 2 diabetes mellitus without complications E11.9 Diabetes mellitus ferry terminal agent insulin use: without ferry terminal agent use Hypertensive urgency I16.0 Essential (primary) hypertension I10 Obstructive sleep apnea G47.33 Dyslipidemia E78.5 Pulmonary hypertension, unspecified I27.20
--- NOTE | 2019-12-06 12:26 | PC.NURSE ---
Discharge instructions provided per the physician instructions. Patient verbalized understanding of information and did not have any further questions.
--- NOTE | 2019-12-06 14:47 | PC.NURSE ---
Cardiac Stress Test appointment edited per Dr. Jacobsen request. New appointment December 09 at 11:15 am. Patient notified of change. Patient verbalized understanding and verbalized compliance to new appointment.
== END 2019-12-06 12:45 | disposition home or self-care (01) ==
LOC: ER 02:38 → CSU 03:10
PROVIDERS: Emergency Medicine; Admitting Provider Student in an Organized Health Care Education/Training Program; PCP Nurse Practitioner Family; Visit Provider Student in an Organized Health Care Education/Training Program
DX: R07.89 Other chest pain (principal); E11.9 Type 2 diabetes mellitus without complications; I16.0 Hypertensive urgency; I10 Essential (primary) hypertension; G47.33 Obstructive sleep apnea (adult) (pediatric); E78.5 Hyperlipidemia, unspecified; I27.20 Pulmonary hypertension, unspecified; Z79.84 Long term (current) use of oral hypoglycemic drugs; M19.90 Unspecified osteoarthritis, unspecified site; Z79.82 Long term (current) use of aspirin
CPT/HCPCS: 12345; 36415; 71045; 71275; 80053; 83880; 84484; 85025; 85378; 93005; 93306; 96372; 99282; 99285; G0378; J1650; J7030; Q9967

== ENCOUNTER 2019-12-10 10:47 | Outpatient (CLI) | payer MEDICARE, OTHER, SELFPAY ==
--- NOTE | 2019-12-10 11:01 | NMCV_ITS ---
NM omid perf SPECT r/s* [id number] Elizabeth Garcia Age: 64 Gender: F : 1955 Exam Date: 12/10/2019 12:13 Ordering Phys: Atif Jacobsen MD Technologist: LUANNE Chiu Exam Location: [facility] Indications: Chest pain STRESS TEST Please see separate stress test report in [facility] for full findings IMAGE PROTOCOL Rest/Stress 1 Lexiscan Day Radiopharmaceutical Dose (mCi) Administration Site Administered by Rest: Tc-99m 10.5 IV LUANNE Chiu Sestamibi Stress:Tc-99m 33.0 IV LUANNE Chiu Sestamibi Rest: 10-Dec-2019 60 Discovery 630 Stress: 10-Dec-2019 45 Discovery 630 0.4mg Lexiscan. Images obtained in supine and prone position. SPECT RESULTS Technical Quality: Good Raw Data Analysis: Breast attenuation, Subdiaphragmatic activity Image Corrections: No attenuation or motion correction applied Summed Stress Score: 4 Summed Rest Score: 2 Summed Difference Score: 2 PERFUSION FINDINGS Small size perfusion abnormality of mild severity of apical lateral wall on rest images with subtle reversibility in mid anterolateral wall on supine stress images with improved tracer uptake on prone stress images. This is suggestive of attenuation artifact. FUNCTIONAL RESULTS (calculated via Gated SPECT) Stress Image LV EF (%): 65 Stress EDV (mL):74 TID: 1.02 Stress ESV (mL):26 FUNCTIONAL FINDINGS: The left ventricle is normal in size. Transient Ischemia Dilatation of 1. There is normal left ventricular systolic function. The left ventricular ejection fraction is normal with a value of 65%. There is normal left ventricular wall thickening. Normal end-diastolic and end-systolic volumes. IMPRESSIONS 1. Myocardial perfusion imaging is normal. Attenuation artifact noted in mid to apical anterolateral draper. 2. Overall left ventricular systolic function is normal without regional wall motion abnormalities. 3. The left ventricular ejection fraction is normal with a value of 65%. 4. No coronary ischemia based on the study. Jessica Brumfield MD (Electronically Signed) Final Date: 11 Dec 2019 18:02 S
[2019-12-10 11:02] VITALS: BMI 19.3
[2019-12-10] MEDS: regadenoson 0.4 Mg/5 ml Syringe IVP (12:55)
[2019-12-10 13:09] VITALS: BP 127/90; PULSE 92
--- NOTE | 2019-12-10 13:15 | ECG_ITS ---
NAME OF STUDY: LEXISCAN SESTAMIBI STRESS TEST INDICATION: Chest Pain PROCEDURE: At the baseline, the blood pressure was 126/87 mmHg with a heart rate of 72 bpm. The electrocardiogram showed sinus rhythm with PAC. Left axis deviation. Poor anterior R wave progression. Incomplete right bundle branch block. Nonspecific ST-T wave changes. The Lexiscan was infused over a period of 20 seconds. A total of 0.4 milligrams of Lexiscan was infused. The stress phase was continued for a total of 5 minutes. Heart rate at the end of the stress phase was 94 bpm with a blood pressure 119/85 mmHg. The EKG at the peak infusion revealed sinus rhythm no significant ST-T wave changes. Sestamibi was injected 20 seconds after the Lexiscan infusion. Blood pressure at the end of the recovery phase was 127/90 mmHg with a heart rate of 90 beats per minute. CONCLUSION: 1. No significant EKG changes with the LexiScan infusion. 2. No LexiScan induced chest pain or cardiac arrhythmia. 3. Normal blood pressure and heart rate response. 4. Sestamibi/sestamibi perfusion scan pending; see separate report. Electronically Signed On 12-10-2019 15:10:40 CDT by Jessica Brumfield M.D. [id number]
== END 2019-12-10 10:48 | disposition home or self-care (01) ==
PROVIDERS: PCP Nurse Practitioner Family; Visit Provider Student in an Organized Health Care Education/Training Program
DX: R07.9 Chest pain, unspecified (principal)
CPT/HCPCS: 78452; 93017; A9500; J2785

== ENCOUNTER → 2019-12-13 10:30 | Outpatient (BNVA) | payer MEDICARE, OTHER, SELFPAY | PROVIDERS: PCP Nurse Practitioner Family; Visit Provider Nurse Practitioner | DX: E11.9 Type 2 diabetes mellitus without complications (principal); I10 Essential (primary) hypertension; E78.5 Hyperlipidemia, unspecified | CPT/HCPCS: 80048; 83036 ==

== ENCOUNTER → 2020-03-18 08:27 | Outpatient (BNVA) | payer MEDICARE, OTHER, SELFPAY | PROVIDERS: PCP Nurse Practitioner Family; Visit Provider Nurse Practitioner Family | DX: E11.9 Type 2 diabetes mellitus without complications (principal); E78.5 Hyperlipidemia, unspecified; I10 Essential (primary) hypertension | CPT/HCPCS: 80053; 80061; 83036; 84443; 85025 ==

== ENCOUNTER → 2020-06-09 14:56 | Outpatient (BNVA) | payer MEDICARE, OTHER, SELFPAY | PROVIDERS: PCP Nurse Practitioner Family; Visit Provider Nurse Practitioner Family | DX: Z20.828 Contact with and (suspected) exposure to other viral communicable diseases (principal); J06.9 Acute upper respiratory infection, unspecified | CPT/HCPCS: 87635 ==

== ENCOUNTER → 2020-06-19 08:48 | Outpatient (BNVA) | payer MEDICARE, OTHER, SELFPAY | PROVIDERS: PCP Nurse Practitioner Family; Visit Provider Nurse Practitioner Family | DX: E11.9 Type 2 diabetes mellitus without complications (principal); E78.5 Hyperlipidemia, unspecified; I10 Essential (primary) hypertension | CPT/HCPCS: 80053; 80061; 81000; 82043; 83036; 85025 ==

== ENCOUNTER → 2020-06-24 11:34 | Outpatient (BNVA) | payer MEDICARE, OTHER, SELFPAY | PROVIDERS: PCP Nurse Practitioner Family; Visit Provider Nurse Practitioner Family | DX: R10.9 Unspecified abdominal pain (principal); R19.7 Diarrhea, unspecified | CPT/HCPCS: 82270; 87506 ==

== ENCOUNTER 2020-07-07 08:00 | Outpatient (CLI) | payer MEDICARE, OTHER, SELFPAY ==
--- NOTE | 2020-07-07 08:00 | US_ITS ---
WS: [id number] Complete ABDOMINAL ULTRASOUND HISTORY: R19.7 - Diarrhea, unspecified COMPARISON: 05/28/2018 Liver: 18.1 cm in length. Mildly enlarged liver with increased attenuation. No mass or bile duct dila tation. Gallbladder: Normally distended with no gallstones, wall thickening or pericholecystic fluid. Gallbladder wall thickness: 0.2 cm. Pancreas: Normal size and echogenicity. CBD: 0.4 cm. Right kidney: 11.1 cm x 4.5 cm x 4.5 cm. Normal size kidney with normal cortical thickness. No hydro nephrosis. Small amount of fluid in the central renal pelvis versus parapelvic cyst. Left kidney: 12.3 cm x 6.4 cm x 3.7 cm. Normal size and echogenicity. No obstruction. Nonobstructing 4 mm calcification in the lower pole. Small parapelvic cysts. No solid mass. Spleen: Normal size and echogenicity. Abdominal aorta and IVC are within normal limits. No ascites. US/US abdomen complete* [id number] IMPRESSION: 1. Mild hepatomegaly and moderate hepatic steatosis. 2. Negative gallbladder. 3. Small parapelvic cyst RIGHT kidney. No renal obstruction.
== END 2020-07-07 08:01 | disposition home or self-care (01) ==
LOC: US 08:06
PROVIDERS: PCP Nurse Practitioner Family; Visit Provider Nurse Practitioner Family
DX: R19.7 Diarrhea, unspecified (principal); R16.0 Hepatomegaly, not elsewhere classified; K76.0 Fatty (change of) liver, not elsewhere classified; Q61.01 Congenital single renal cyst
CPT/HCPCS: 76700

== ENCOUNTER → 2020-09-17 08:11 | Outpatient (BNVA) | payer MEDICARE, OTHER, SELFPAY | PROVIDERS: PCP Nurse Practitioner Family; Visit Provider Nurse Practitioner Family | DX: E11.9 Type 2 diabetes mellitus without complications (principal); E78.5 Hyperlipidemia, unspecified | CPT/HCPCS: 80053; 80061; 83036; 84443; 85025 ==

== ENCOUNTER → 2020-09-21 10:25 | Outpatient (BNVA) | payer MEDICARE, OTHER, SELFPAY | PROVIDERS: PCP Nurse Practitioner Family; Visit Provider Nurse Practitioner Family | DX: R30.0 Dysuria (principal); J84.9 Interstitial pulmonary disease, unspecified; I10 Essential (primary) hypertension; B37.3 Candidiasis of vulva and vagina; M15.9 Polyosteoarthritis, unspecified; E11.9 Type 2 diabetes mellitus without complications; E78.5 Hyperlipidemia, unspecified; G47.33 Obstructive sleep apnea (adult) (pediatric) | CPT/HCPCS: 81000 ==

== ENCOUNTER → 2020-12-17 09:15 | Outpatient (BNVA) | payer MEDICARE, OTHER, SELFPAY | PROVIDERS: PCP Nurse Practitioner Family; Visit Provider Nurse Practitioner Family | DX: E11.9 Type 2 diabetes mellitus without complications (principal); I10 Essential (primary) hypertension; I48.0 Paroxysmal atrial fibrillation | CPT/HCPCS: 80053; 80061; 83036 ==

== ENCOUNTER → 2021-03-23 09:12 | Outpatient (BNVA) | payer MEDICARE, OTHER, SELFPAY | PROVIDERS: PCP Nurse Practitioner Family; Visit Provider Nurse Practitioner Family | DX: E11.9 Type 2 diabetes mellitus without complications (principal); I10 Essential (primary) hypertension; E78.5 Hyperlipidemia, unspecified | CPT/HCPCS: 80053; 80061; 83036; 85025 ==

== ENCOUNTER → 2021-05-31 13:50 | Outpatient (BNVA) | payer MEDICARE, OTHER, SELFPAY | PROVIDERS: Absent Provider Family Medicine; PCP Nurse Practitioner Family; Visit Provider Nurse Practitioner Family | DX: N39.0 Urinary tract infection, site not specified (principal); B37.3 Candidiasis of vulva and vagina | CPT/HCPCS: 81000 ==

== ENCOUNTER → 2021-06-18 08:35 | Outpatient (BNVA) | payer MEDICARE, OTHER, SELFPAY | PROVIDERS: PCP Nurse Practitioner Family; Visit Provider Nurse Practitioner Family | DX: E11.9 Type 2 diabetes mellitus without complications (principal); E78.5 Hyperlipidemia, unspecified; I10 Essential (primary) hypertension | CPT/HCPCS: 80053; 80061; 81000; 83036; 85025 ==

== ENCOUNTER → 2021-07-15 10:24 | Outpatient (BNVA) | payer MEDICARE, OTHER, SELFPAY | PROVIDERS: PCP Nurse Practitioner Family; Referring Provider Internal Medicine Cardiovascular Disease; Visit Provider Internal Medicine Cardiovascular Disease | DX: Z01.812 Encounter for preprocedural laboratory examination (principal); I48.0 Paroxysmal atrial fibrillation; R07.9 Chest pain, unspecified | CPT/HCPCS: 85025; 87635 ==

== ENCOUNTER 2021-07-19 11:25 | Outpatient (CLI) | payer MEDICARE, OTHER, SELFPAY ==
[2021-07-19] MEDS: cephALEXin 500 mg Capsule 2000 MG PO (12:16)
[2021-07-19 12:17] VITALS: BP 119/78; PULSE 69; RESP 16; TEMP 36.4; O2SAT 99; BMI 40.4
--- NOTE | 2021-07-19 12:20 | W.PM.OPSUD ---
Surgery/Procedure H&P Update DATE OF PROCEDURE: July 19, 2021 DATE H&P PERFORMED: 07/07/21 H&P UPDATE INFORMATION: I have reviewed H&P completed within last 30 days, I have examined patient prior to procedure and No changes to prior documentation PREOP DIAGNOSIS: syncope PLANNED PROCEDURE: Operation Date: 07/19/21 12:00 Proposed Procedures p Loop Recorder Insertion(Left) - Tennille Lau MD
[2021-07-19 13:41] VITALS: BP 116/84; PULSE 64; RESP 17; O2SAT 98
--- NOTE | 2021-07-20 08:48 | P.OP_ITS ---
Operative Report Date of procedure: July 19, 2021 Pre-op Diagnosis: Palpitations/dizziness Procedure: Date of Procedure: Name of the procedure: IMPLANTABLE LAY MIDWIFE INSERTION LOCATION: Cardiac Catheterization Laboratory REFERRING PROVIDER: Dr. PATRICK Lau PREOPERATIVE DIAGNOSIS: Recurrent episodes of palpitations/dizziness POSTOPERATIVE DIAGNOSIS: Same. ESTIMATED BLOOD LOSS: None COMPLICATIONS: None. BRIEF HISTORY: Patient presented with [recurrent episodes of palpitations/dizziness. She had an event monitor which didn't reveal any signif icant arrhythmias to explain the symptoms. Apparently she could not wear the monitor too long since patch was coming off the chest due to sweating. There was a question of atrial flutter/fibrillation but because of the artifact, it was not convincing. Her symptoms also are infrequent. For further evaluation of her condition, an implantable respiratory therapy manager was recommended. PROCEDURE: The procedure was explained to the patient in detail with the risks and benefits. The risk of bleeding, hematoma, vascular injury, infection and other concomitant complications were explained in detail. The patient understood this well and consented to proceed. The patient was brought to the Cardiac Staff Combat Information Center Officer. The left side of the chest was cleaned and draped in a sterile fashion. 1% Xylocaine was used as local anesthetic agent. An incision was made in the left fourth intercostal space. Making use of the application device, the implantable respiratory therapy manager was inserted, subcutaneously. 5 minutes of manual pressure was applied, at the puncture site. The patient tolerated the procedure very well and there were no complications. No bleeding or hematoma. Steri-Strips were applied over the insertion site followed by a sterile dressing. Patient was sent back to the medical floor in stable condition IMPLANTED DEVICE Reveal LINQ Model number: [id number] Serial number: [id number] Make: [employer] Parameters: Standard settings were applied( (tachycardia rate of 150 beats per minute , bradycardia rate of 40 beats per minute and a pause of 3 seconds ; symptom recording -4 episodes of 7.5 minutes. Atrial fibrillation detection was turned on- recording threshold of ->6 minutes. Sensitivity was kept at 0.035 mV) The R wave sensing was 0.35 mV
== END 2021-07-19 13:58 | disposition home or self-care (01) ==
PROVIDERS: PCP Nurse Practitioner Family; Visit Provider Internal Medicine Cardiovascular Disease
PROC: (CPT 33285; principal; 2021-07-19 12:00)
DX: R00.2 Palpitations (principal); R42 Dizziness and giddiness; I10 Essential (primary) hypertension; E11.9 Type 2 diabetes mellitus without complications; G47.33 Obstructive sleep apnea (adult) (pediatric); E78.5 Hyperlipidemia, unspecified; Z79.82 Long term (current) use of aspirin; Z79.84 Long term (current) use of oral hypoglycemic drugs; I48.91 Unspecified atrial fibrillation; E66.01 Morbid (severe) obesity due to excess calories; Z68.41 Body mass index [BMI] 40.0-44.9, adult; I27.20 Pulmonary hypertension, unspecified
CPT/HCPCS: 33285; C1764; C1769

== ENCOUNTER → 2021-09-16 09:36 | Outpatient (BNVA) | payer MEDICARE, OTHER, SELFPAY | PROVIDERS: PCP Nurse Practitioner Family; Visit Provider Nurse Practitioner Family | DX: E11.9 Type 2 diabetes mellitus without complications (principal); I10 Essential (primary) hypertension | CPT/HCPCS: 80053; 80061; 83036; 85025 ==

== ENCOUNTER → 2021-09-20 15:00 | Outpatient (BNVA) | payer MEDICARE, OTHER, SELFPAY | PROVIDERS: PCP Nurse Practitioner Family; Visit Provider Nurse Practitioner Family | DX: I49.8 Other specified cardiac arrhythmias (principal); I10 Essential (primary) hypertension | CPT/HCPCS: 99213; 99214 ==

== ENCOUNTER → 2021-12-15 08:37 | Outpatient (BNVA) | payer MEDICARE, OTHER, SELFPAY | PROVIDERS: PCP Nurse Practitioner Family; Visit Provider Nurse Practitioner Family | DX: E11.9 Type 2 diabetes mellitus without complications (principal); I27.20 Pulmonary hypertension, unspecified | CPT/HCPCS: 80053; 80061; 83036; 85025 ==

== ENCOUNTER → 2021-12-23 14:12 | Outpatient (BNVA) | payer MEDICARE, OTHER, SELFPAY | PROVIDERS: PCP Nurse Practitioner Family; Visit Provider Internal Medicine Cardiovascular Disease | DX: Z45.09 Encounter for adjustment and management of other cardiac device (principal) | CPT/HCPCS: 93298 ==

== ENCOUNTER → 2022-03-16 08:38 | Outpatient (BNVA) | payer MEDICARE, OTHER, SELFPAY | PROVIDERS: PCP Nurse Practitioner Family; Visit Provider Nurse Practitioner Family | DX: E11.9 Type 2 diabetes mellitus without complications (principal); I10 Essential (primary) hypertension | CPT/HCPCS: 80053; 80061; 83036; 85025 ==

== ENCOUNTER → 2022-06-13 08:17 | Outpatient (BNVA) | payer MEDICARE, OTHER, SELFPAY | PROVIDERS: PCP Nurse Practitioner Family; Visit Provider Nurse Practitioner Family | DX: E11.9 Type 2 diabetes mellitus without complications (principal); I10 Essential (primary) hypertension; R07.9 Chest pain, unspecified | CPT/HCPCS: 80053; 80061; 83036; 85025 ==

== ENCOUNTER → 2022-07-14 10:23 | Outpatient (BNVA) | payer MEDICARE, OTHER, SELFPAY | PROVIDERS: PCP Nurse Practitioner Family; Visit Provider Internal Medicine Cardiovascular Disease | DX: I49.8 Other specified cardiac arrhythmias (principal); G47.33 Obstructive sleep apnea (adult) (pediatric); I10 Essential (primary) hypertension; E11.9 Type 2 diabetes mellitus without complications; Z79.84 Long term (current) use of oral hypoglycemic drugs; H65.193 Other acute nonsuppurative otitis media, bilateral; I27.20 Pulmonary hypertension, unspecified | CPT/HCPCS: 99214 ==

== ENCOUNTER → 2022-09-06 08:19 | Outpatient (BNVA) | payer MEDICARE, OTHER, SELFPAY | PROVIDERS: PCP Nurse Practitioner Family; Visit Provider Nurse Practitioner Family | DX: E11.9 Type 2 diabetes mellitus without complications (principal); I10 Essential (primary) hypertension; R07.9 Chest pain, unspecified | CPT/HCPCS: 80053; 80061; 83036; 85025 ==

== ENCOUNTER → 2022-11-02 16:00 | Outpatient (BNVA) | payer MEDICARE, OTHER, SELFPAY | PROVIDERS: PCP Nurse Practitioner Family; Visit Provider Nurse Practitioner Family | DX: R05.9 Cough, unspecified (principal); Z11.52 Encounter for screening for COVID-19 | CPT/HCPCS: 87426 ==

== ENCOUNTER → 2022-11-15 09:18 | Outpatient (BNVA) | payer MEDICARE, OTHER, SELFPAY | PROVIDERS: PCP Nurse Practitioner Family; Visit Provider Internal Medicine Cardiovascular Disease | DX: Z45.09 Encounter for adjustment and management of other cardiac device (principal) | CPT/HCPCS: G2066 ==

== ENCOUNTER → 2022-12-09 08:05 | Outpatient (BNVA) | payer MEDICARE, OTHER, SELFPAY | PROVIDERS: PCP Nurse Practitioner Family; Visit Provider Nurse Practitioner Family | DX: R07.9 Chest pain, unspecified (principal); E11.9 Type 2 diabetes mellitus without complications | CPT/HCPCS: 80053; 80061; 83036; 85025 ==

== ENCOUNTER → 2023-01-11 08:03 | Outpatient (BNVA) | payer MEDICARE, OTHER, SELFPAY | PROVIDERS: PCP Nurse Practitioner Family; Visit Provider Internal Medicine Cardiovascular Disease | DX: Z45.09 Encounter for adjustment and management of other cardiac device (principal) | CPT/HCPCS: G2066 ==

== ENCOUNTER → 2023-02-14 15:37 | Outpatient (BNVA) | payer MEDICARE, OTHER, SELFPAY | PROVIDERS: PCP Nurse Practitioner Family; Visit Provider Internal Medicine Cardiovascular Disease | DX: Z45.09 Encounter for adjustment and management of other cardiac device (principal) | CPT/HCPCS: G2066 ==

== ENCOUNTER → 2023-03-13 08:55 | Outpatient (BNVA) | payer MEDICARE, OTHER, SELFPAY | PROVIDERS: PCP Nurse Practitioner Family; Visit Provider Nurse Practitioner Family | DX: E11.9 Type 2 diabetes mellitus without complications (principal); R07.9 Chest pain, unspecified | CPT/HCPCS: 80053; 80061; 83036 ==

== ENCOUNTER → 2023-03-23 15:16 | Outpatient (BNVA) | payer MEDICARE, OTHER, SELFPAY | PROVIDERS: PCP Nurse Practitioner Family; Visit Provider Internal Medicine Cardiovascular Disease | DX: I49.8 Other specified cardiac arrhythmias (principal); R07.89 Other chest pain; I10 Essential (primary) hypertension; E66.01 Morbid (severe) obesity due to excess calories; Z68.41 Body mass index [BMI] 40.0-44.9, adult; E11.9 Type 2 diabetes mellitus without complications; G47.33 Obstructive sleep apnea (adult) (pediatric); Z79.84 Long term (current) use of oral hypoglycemic drugs | CPT/HCPCS: 99214 ==

== ENCOUNTER → 2023-04-12 16:23 | Outpatient (BNVA) | payer MEDICARE, OTHER, SELFPAY | PROVIDERS: PCP Nurse Practitioner Family; Visit Provider Internal Medicine Cardiovascular Disease | DX: Z45.09 Encounter for adjustment and management of other cardiac device (principal) | CPT/HCPCS: G2066 ==

== ENCOUNTER → 2023-05-30 08:09 | Outpatient (BNVA) | payer MEDICARE, OTHER, SELFPAY | PROVIDERS: PCP Nurse Practitioner Family; Visit Provider Nurse Practitioner Family | DX: E11.9 Type 2 diabetes mellitus without complications (principal); R07.9 Chest pain, unspecified | CPT/HCPCS: 80053; 80061; 83036; 85025 ==

== ENCOUNTER → 2023-06-21 12:37 | Outpatient (BNVA) | payer MEDICARE, OTHER, SELFPAY | PROVIDERS: PCP Nurse Practitioner Family; Visit Provider Internal Medicine Cardiovascular Disease | DX: Z45.09 Encounter for adjustment and management of other cardiac device (principal) | CPT/HCPCS: G2066 ==

== ENCOUNTER → 2023-08-22 08:13 | Outpatient (BNVA) | payer MEDICARE, OTHER, SELFPAY | PROVIDERS: PCP Nurse Practitioner Family; Visit Provider Nurse Practitioner Family | DX: E11.9 Type 2 diabetes mellitus without complications (principal) | CPT/HCPCS: 80053; 80061; 83036; 85025 ==

== ENCOUNTER → 2023-08-24 09:47 | Outpatient (BNVA) | payer MEDICARE, OTHER, SELFPAY | PROVIDERS: PCP Nurse Practitioner Family; Visit Provider Nurse Practitioner Family | DX: J02.9 Acute pharyngitis, unspecified (principal); E78.5 Hyperlipidemia, unspecified; K21.9 Gastro-esophageal reflux disease without esophagitis; J84.9 Interstitial pulmonary disease, unspecified; E11.9 Type 2 diabetes mellitus without complications; M15.9 Polyosteoarthritis, unspecified; I10 Essential (primary) hypertension; J30.89 Other allergic rhinitis; G47.33 Obstructive sleep apnea (adult) (pediatric) | CPT/HCPCS: 87071; 87880 ==

== ENCOUNTER → 2023-10-02 14:49 | Outpatient (BNVA) | payer MEDICARE, OTHER, SELFPAY | PROVIDERS: PCP Nurse Practitioner Family; Visit Provider Internal Medicine Cardiovascular Disease | DX: Z95.818 Presence of other cardiac implants and grafts (principal); R07.9 Chest pain, unspecified; E78.5 Hyperlipidemia, unspecified; I10 Essential (primary) hypertension; I49.8 Other specified cardiac arrhythmias; I27.20 Pulmonary hypertension, unspecified; E11.9 Type 2 diabetes mellitus without complications; Z79.84 Long term (current) use of oral hypoglycemic drugs | CPT/HCPCS: 99214 ==

== ENCOUNTER → 2023-10-04 23:45 | Outpatient (BNVA) | payer MEDICARE, OTHER, SELFPAY | PROVIDERS: PCP Nurse Practitioner Family; Visit Provider Internal Medicine Cardiovascular Disease | DX: Z45.09 Encounter for adjustment and management of other cardiac device (principal) | CPT/HCPCS: 93298 ==

== ENCOUNTER → 2023-11-20 07:56 | Outpatient (BNVA) | payer MEDICARE, OTHER, SELFPAY | PROVIDERS: PCP Nurse Practitioner Family; Visit Provider Nurse Practitioner Family | DX: E11.9 Type 2 diabetes mellitus without complications (principal) | CPT/HCPCS: 80053; 80061; 83036; 85025 ==

== ENCOUNTER → 2023-12-20 10:18 | Outpatient (BNVA) | payer MEDICARE, OTHER, SELFPAY | PROVIDERS: PCP Nurse Practitioner Family; Visit Provider Internal Medicine Cardiovascular Disease | DX: Z45.09 Encounter for adjustment and management of other cardiac device (principal) | CPT/HCPCS: 93298 ==

== ENCOUNTER → 2024-01-30 13:47 | Outpatient (BNVA) | payer MEDICARE, OTHER, SELFPAY | PROVIDERS: PCP Nurse Practitioner Family; Visit Provider Internal Medicine Cardiovascular Disease | DX: Z45.09 Encounter for adjustment and management of other cardiac device (principal) | CPT/HCPCS: 93298 ==

== ENCOUNTER → 2024-02-05 08:30 | Outpatient (BNVA) | payer MEDICARE, OTHER, SELFPAY | PROVIDERS: PCP Nurse Practitioner Family; Visit Provider Nurse Practitioner Family | DX: E11.9 Type 2 diabetes mellitus without complications (principal) | CPT/HCPCS: 80053; 80061; 83036; 85025 ==

== ENCOUNTER → 2024-04-01 13:28 | Outpatient (BNVA) | payer MEDICARE, OTHER, SELFPAY | PROVIDERS: PCP Nurse Practitioner Family; Visit Provider Internal Medicine Cardiovascular Disease | DX: R55 Syncope and collapse (principal); E78.5 Hyperlipidemia, unspecified; I10 Essential (primary) hypertension; I49.8 Other specified cardiac arrhythmias; I27.20 Pulmonary hypertension, unspecified; Z95.818 Presence of other cardiac implants and grafts; E11.9 Type 2 diabetes mellitus without complications | CPT/HCPCS: 99214 ==

== ENCOUNTER → 2024-04-03 11:34 | Outpatient (BNVA) | payer MEDICARE, OTHER, SELFPAY | PROVIDERS: PCP Nurse Practitioner Family; Visit Provider Internal Medicine Cardiovascular Disease | DX: Z45.09 Encounter for adjustment and management of other cardiac device (principal) | CPT/HCPCS: 93298 ==

== ENCOUNTER → 2024-04-22 08:43 | Outpatient (BNVA) | payer MEDICARE, OTHER, SELFPAY | PROVIDERS: PCP Nurse Practitioner Family; Visit Provider Nurse Practitioner Family | DX: E11.9 Type 2 diabetes mellitus without complications (principal) | CPT/HCPCS: 80053; 80061; 82607; 83036; 85025 ==

== ENCOUNTER → 2024-05-08 10:42 | Outpatient (BNVA) | payer MEDICARE, OTHER, SELFPAY | PROVIDERS: PCP Nurse Practitioner Family; Visit Provider Internal Medicine Cardiovascular Disease | DX: Z45.09 Encounter for adjustment and management of other cardiac device (principal) | CPT/HCPCS: 93298 ==

== ENCOUNTER → 2024-06-12 11:19 | Outpatient (BNVA) | payer MEDICARE, OTHER, SELFPAY | PROVIDERS: PCP Nurse Practitioner Family; Visit Provider Internal Medicine Cardiovascular Disease | DX: Z45.09 Encounter for adjustment and management of other cardiac device (principal) | CPT/HCPCS: 93298 ==

== ENCOUNTER → 2024-07-18 08:07 | Outpatient (BNVA) | payer MEDICARE, OTHER, SELFPAY | PROVIDERS: PCP Nurse Practitioner Family; Visit Provider Nurse Practitioner Family | DX: E11.9 Type 2 diabetes mellitus without complications (principal) | CPT/HCPCS: 80053; 80061; 83036; 85025 ==

== ENCOUNTER → 2024-07-24 09:18 | Outpatient (BNVA) | payer MEDICARE, OTHER, SELFPAY | PROVIDERS: PCP Nurse Practitioner Family; Visit Provider Internal Medicine Cardiovascular Disease | DX: Z45.09 Encounter for adjustment and management of other cardiac device (principal) | CPT/HCPCS: 93298 ==

== ENCOUNTER → 2024-08-28 09:47 | Outpatient (BNVA) | payer MEDICARE, OTHER, SELFPAY | PROVIDERS: PCP Nurse Practitioner Family; Visit Provider Internal Medicine Cardiovascular Disease | DX: Z45.09 Encounter for adjustment and management of other cardiac device (principal) | CPT/HCPCS: 93298 ==

== ENCOUNTER → 2024-09-25 09:29 | Outpatient (BNVA) | payer MEDICARE, OTHER, SELFPAY | PROVIDERS: PCP Nurse Practitioner Family; Visit Provider Internal Medicine | DX: Z45.09 Encounter for adjustment and management of other cardiac device (principal) | CPT/HCPCS: 93298 ==

== ENCOUNTER → 2024-09-30 13:32 | Outpatient (BNVA) | payer MEDICARE, OTHER, SELFPAY | PROVIDERS: PCP Nurse Practitioner Family; Visit Provider Internal Medicine Cardiovascular Disease | DX: I49.8 Other specified cardiac arrhythmias (principal); E78.5 Hyperlipidemia, unspecified; I10 Essential (primary) hypertension; I27.20 Pulmonary hypertension, unspecified; R55 Syncope and collapse; Z95.818 Presence of other cardiac implants and grafts; E11.9 Type 2 diabetes mellitus without complications; Z79.84 Long term (current) use of oral hypoglycemic drugs | CPT/HCPCS: 99214 ==

== ENCOUNTER → 2024-10-14 08:11 | Outpatient (BNVA) | payer MEDICARE, OTHER, SELFPAY | PROVIDERS: PCP Nurse Practitioner Family; Visit Provider Nurse Practitioner Family | DX: E11.9 Type 2 diabetes mellitus without complications (principal) | CPT/HCPCS: 80053; 80061; 83036; 85025 ==

== ENCOUNTER → 2024-10-30 10:46 | Outpatient (BNVA) | payer MEDICARE, OTHER, SELFPAY | PROVIDERS: PCP Nurse Practitioner Family; Visit Provider Internal Medicine Cardiovascular Disease | DX: Z45.09 Encounter for adjustment and management of other cardiac device (principal) | CPT/HCPCS: 93298 ==

== ENCOUNTER → 2024-12-04 11:02 | Outpatient (BNVA) | payer MEDICARE, OTHER, SELFPAY | PROVIDERS: PCP Nurse Practitioner Family; Visit Provider Internal Medicine Cardiovascular Disease | DX: Z45.09 Encounter for adjustment and management of other cardiac device (principal) | CPT/HCPCS: 93298 ==

== ENCOUNTER → 2025-01-10 08:09 | Outpatient (BNVA) | payer MEDICARE, OTHER, SELFPAY | PROVIDERS: PCP Nurse Practitioner Family; Visit Provider Nurse Practitioner Family | DX: E11.9 Type 2 diabetes mellitus without complications (principal) | CPT/HCPCS: 80053; 80061; 83036; 85025 ==

== ENCOUNTER → 2025-01-29 17:14 | Outpatient (BNVA) | payer MEDICARE, OTHER, SELFPAY | PROVIDERS: PCP Nurse Practitioner Family; Visit Provider Internal Medicine Cardiovascular Disease | DX: Z45.09 Encounter for adjustment and management of other cardiac device (principal) | CPT/HCPCS: 93298 ==

== ENCOUNTER → 2025-02-07 08:56 | Outpatient (BNVA) | payer MEDICARE, OTHER, SELFPAY | PROVIDERS: PCP Nurse Practitioner Family; Visit Provider Nurse Practitioner Family | DX: I49.8 Other specified cardiac arrhythmias (principal); I10 Essential (primary) hypertension; E78.5 Hyperlipidemia, unspecified; I27.20 Pulmonary hypertension, unspecified; R55 Syncope and collapse; Z95.818 Presence of other cardiac implants and grafts; E11.9 Type 2 diabetes mellitus without complications; Z79.84 Long term (current) use of oral hypoglycemic drugs; R07.9 Chest pain, unspecified | CPT/HCPCS: 36415; 80048; 85025; 99214 ==

== ENCOUNTER 2025-02-12 09:32 | Outpatient (CLI) | payer MEDICARE, OTHER, SELFPAY ==
--- NOTE | 2025-02-12 | ECG_ITS ---
Otelic Test Date: 2025-02-12 Pat Name: Elizabeth Garcia Department: Room: Gender: Female Manager Fixed Income: : 1955 Requested By: Karen Tavares Order Number: [id number] Dante MD: Casper Guallpa M.D. Interpretive Statements LEXISCAN SESTAMIBI STRESS TEST Procedure: At the baseline, the blood pressure was 115/74 mmHg with a heart rate of 62 bpm. The electrocardiogram showed normal sinus rhythm, left anterior fascicular block with specific ST-T wave abnormality The Lexiscan was infused over a period of 20 seconds. A total of 0.4 mg of Lexiscan was infused. The stress phase was continued for a total of 5 minutes. Heart rate was at the end of stress phase was 82 bpm and a blood pressure of 114/67 mmHg. The EKG at the peak infusion revealed normal sinus rhythm with no significant ST-T wave changes. Sestamibi was injected 20 seconds after the Lexiscan infusion. Blood pressure at the end of recovery phase was 115/67 mmHg with a heart rate of 81 bpm. Conclusion: 1. Normal EKG response to Lexiscan infusion 2. No Lexiscan induced chest pain or cardiac arrhythmia. 3. Normal blood pressure and heart rate response. 4. Nuclear myocardial perfusion scan pending; see separate report. Electronically Signed On 02-16-2025 13:08:26 CDT by Casper Guallpa M.D. [email or web address] [id number]
--- NOTE | 2025-02-12 | NMCV_ITS ---
NM omid perf SPECT rest [id number] Elizabeth Garcia Age: 69 Gender: F : 1955 Exam Date: 02/12/2025 10:36 Ordering Phys: Karen Tavares NP Technologist: LUANNE Epstein Exam Location: [facility] Indications: cp STRESS TEST Please [facility] for [facility] IMAGE PROTOCOL Rest/Stress 1 Lexiscan Day Radiopharmaceutical Dose (mCi) Administration Site Administered by Rest: Tc-99m 10.8 IV Leilani Zimmerman, [employer] Sestamibi Stress:Tc-99m 32.6 IV Leilani Coronelgle, [employer] Sestamibi Rest: 12-Feb-2025 60 Discovery 630 Stress: 12-Feb-2025 30 Discovery 630 0.4mg Lexiscan. Images obtained in supine and prone position. SPECT RESULTS Technical Quality: Good Raw Data Analysis: Normal Image Corrections: No attenuation or motion correction applied Summed Stress Score: 3 Summed Rest Score: 4 Summed Difference Score: 1 PERFUSION FINDINGS SPECT images demonstrate a medium sized area of mildly reduced tracer counts in the anterior wall most consistent with breast attenuation artifact. FUNCTIONAL RESULTS (calculated via Gated SPECT) Stress Image LV EF (%): 75 Stress EDV (mL):79 TID: 0.95 Stress ESV (mL):20 FUNCTIONAL FINDINGS: There is normal left ventricular systolic function. IMPRESSIONS Myocardial perfusion imaging without infarction or ischemia Normal left ventricular systolic function. EF 75%. Casper Guallpa MD, FACC (Electronically Signed) Final Date: 17 February 2025 12:58 S
[2025-02-12 10:00] VITALS: BMI 37.5
[2025-02-12 11:21] VITALS: BP 115/67; PULSE 81
== END 2025-02-12 09:33 | disposition home or self-care (01) ==
LOC: CDL 09:35
PROVIDERS: PCP Nurse Practitioner Family; Visit Provider Nurse Practitioner Family
DX: R07.9 Chest pain, unspecified (principal); Z01.89 Encounter for other specified special examinations
CPT/HCPCS: 36415; 78451; 78452; 93017; 96374; A9500; J2785

== ENCOUNTER → 2025-03-05 10:52 | Outpatient (BNVA) | payer MEDICARE, OTHER, SELFPAY | PROVIDERS: PCP Nurse Practitioner Family; Visit Provider Internal Medicine Cardiovascular Disease | DX: Z45.09 Encounter for adjustment and management of other cardiac device (principal) | CPT/HCPCS: 93298 ==

== ENCOUNTER 2025-03-07 09:50 | Outpatient (CLI) | payer MEDICARE, OTHER, SELFPAY ==
--- NOTE | 2025-03-07 10:00 | USCV_ITS ---
Elizabeth Garcia Age: 69 Gender: F : 1955 Exam Date: 03/07/2025 10:14 Ordering Phys: Karen Tavares NP Technologist: Vitor Birch Exam Location: [facility] [place] Indication: new onset aflutter BP: 120 / 78 HR: 70 Rhythm: Sinus Technical Quality: Adequate MEASUREMENTS (Male / Female) Normal Values 2D ECHO LV Diastolic Diameter PLAX 4.5 cm 4.2 - 5.9 / 3.9 - 5.3 cm IVS Diastolic Thickness 1.0 cm 0.6 - 1.0 / 0.6 - 0.9 cm IVS Systolic Thickness 1.4 cm LVPW Diastolic Thickness 1.0 cm 0.6 - 1.0 / 0.6 - 0.9 cm LVPW Systolic Thickness 1.6 cm LVOT Diameter 2.0 cm LV Ejection Fraction 2D Teich 65.2 % LV Ejection Fraction MOD 4C 60.4 % LV Ejection Fraction MOD 2C 59.6 % LV Ejection Fraction 2C AL 58.2 % LA Diameter 3.2 cm RA Systolic Volume 4C AL 44.0 ml RA Systolic Volume 4C MOD 42.2 ml LA Sys Volume AL 53.2 cm cubed LA Sys Volume Index AL 22.7 cm cubed/m squared Aorta at Sinotubular Diameter 2.6 cm IVC Diameter 1.4 cm M-MODE LA Ao Ratio MM 1.3 AV Cusp Separation MM 1.9 cm DOPPLER LVOT Peak Velocity 103.0 cm/s MV Peak Velocity 82.0 cm/s MV Area PHT 3.6 cm squared Mitral E to A Ratio 0.8 TV Peak Velocity 190.5 cm/s TR Peak Velocity 232.0 cm/s TR Peak Gradient 21.5 mmHg TR Mean Velocity 178.0 cm/s TR Mean Gradient 14.1 mmHg TR Velocity Time Integral 71.9 cm PV Peak Velocity 93.0 cm/s RV Ejection Time 0.2 s FINDINGS Left Ventricle Normal left ventricular size and systolic function, EF 58%.no regional wall motion abnormalities. Right Ventricle Normal right ventricular size and systolic function. Right Atrium The right atrium is normal in size. Left Atrium The left atrium is normal in size. Mitral Valve Mild mitral annular calcification. Aortic Valve No gross abnormalities noted Tricuspid Valve No gross abnormalities noted Pulmonic Valve Pulmonic valve not well visualized. Pericardium Normal pericardium without effusion. Aorta Normal ascending aorta dimension. IVC Normal inferior vena cava. CONCLUSIONS Normal left ventricular size and systolic function, EF 58%. No regional wall motion abnormalities. Mild mitral annular calcification. There is no pericardial effusion. There are no intracardiac masses. Compared to the study from 12/06/2019, there may not be a significant change. Dr Tennille Lau MD [facility] (Electronically Signed) Final Date: 08 March 2025 12:50 S
== END 2025-03-07 09:51 | disposition home or self-care (01) ==
LOC: RAD 09:52
PROVIDERS: PCP Nurse Practitioner Family; Visit Provider Nurse Practitioner Family
DX: R07.9 Chest pain, unspecified (principal); I34.81 Nonrheumatic mitral (valve) annulus calcification
CPT/HCPCS: 93306

== ENCOUNTER → 2025-03-21 10:07 | Outpatient (BNVA) | payer MEDICARE, OTHER, SELFPAY | PROVIDERS: PCP Nurse Practitioner Family; Visit Provider Internal Medicine Cardiovascular Disease | DX: I48.92 Unspecified atrial flutter (principal); Z45.09 Encounter for adjustment and management of other cardiac device; E78.5 Hyperlipidemia, unspecified; I10 Essential (primary) hypertension; I27.20 Pulmonary hypertension, unspecified; E11.9 Type 2 diabetes mellitus without complications; Z79.01 Long term (current) use of anticoagulants; Z79.84 Long term (current) use of oral hypoglycemic drugs | CPT/HCPCS: 99214 ==

== ENCOUNTER → 2025-04-03 08:05 | Outpatient (BNVA) | payer MEDICARE, OTHER, SELFPAY | PROVIDERS: PCP Nurse Practitioner Family; Visit Provider Nurse Practitioner Family | DX: E11.9 Type 2 diabetes mellitus without complications (principal) | CPT/HCPCS: 80053; 80061; 83036; 84443; 85025 ==

== ENCOUNTER → 2025-06-05 12:47 | Outpatient (BNVA) | payer MEDICARE, OTHER, SELFPAY | PROVIDERS: PCP Nurse Practitioner Family; Visit Provider Podiatrist Foot & Ankle Surgery | DX: L60.3 Nail dystrophy (principal); G62.9 Polyneuropathy, unspecified; E11.42 Type 2 diabetes mellitus with diabetic polyneuropathy; Z79.84 Long term (current) use of oral hypoglycemic drugs | CPT/HCPCS: 99203 ==

== ENCOUNTER → 2025-06-27 08:20 | Outpatient (BNVA) | payer MEDICARE, OTHER, SELFPAY | PROVIDERS: PCP Nurse Practitioner Family; Visit Provider Nurse Practitioner Family | DX: E11.9 Type 2 diabetes mellitus without complications (principal); R07.9 Chest pain, unspecified; I16.0 Hypertensive urgency | CPT/HCPCS: 80053; 80061; 83036; 84443; 85025 ==